=== PATIENT | male | born 1970 | race Caucasian/White ===

== ENCOUNTER 2017-12-28 09:59 | Emergency (ER) | payer OTHER ==
[~2017-12-28] VITALS: Ht 172.7 cm; Wt 81.6 kg
[2017-12-28 10:09] VITALS: BP_SYST 118
[2017-12-28] MEDS ORDERED: fentaNYL CITRATE/PF 100 MCG/2 ML AMP IVP ONE ×3 (10:45→18:45)
[2017-12-28] MEDS ORDERED: DIPH-TET-PERTUS Vaccine 0.5 ML VIAL (ADACEL) I.M. ONE (11:45)
[2017-12-28] MEDS ORDERED: BUPIVACAINE /PF 0.25% 30 ML VIAL INJ ONE (16:00)
[2017-12-28] MEDS ORDERED: BACITRACIN 1 GM OINT TP ONE (16:22)
[2017-12-28] MEDS ORDERED: VANCOMYCIN HCL 1,000 MG in NS 250 ML IV ONE (16:30)
[2017-12-28] MEDS ORDERED: VANCOMYCIN HCL 1000 MG/VIAL IV ONE (16:42)
[2017-12-28 19:16] VITALS: BP_SYST 116
== END 2017-12-28 19:16 | disposition home or self-care (01) ==
LOC: SED 09:59
DX: S62.633B Displaced fracture of distal phalanx of left middle finger, initial encounter for open fracture (principal); S61.213A Laceration without foreign body of left middle finger without damage to nail, initial encounter; Z88.1 Allergy status to other antibiotic agents; Z88.5 Allergy status to narcotic agent; Z88.6 Allergy status to analgesic agent; W23.1XXA Caught, crushed, jammed, or pinched between stationary objects, initial encounter; Y93.89 Activity, other specified; Y92.69 Other specified industrial and construction area as the place of occurrence of the external cause; Y99.8 Other external cause status
CPT/HCPCS: 26755; 73140; 90471; 90715; 96365; 96366; 96375; 96376; 99285; J1956; J3010; J3370; J3490